=== PATIENT | male | born 1995 | race Caucasian/White ===

== ENCOUNTER 2022-06-13 21:40 | Emergency (ER) | payer BC, SELFPAY ==
[2022-06-13 21:45] VITALS: BP 128/74; PULSE 92; RESP 16; TEMP 36.8; O2SAT 97; BMI 18.7
--- NOTE | 2022-06-14 07:25 | ED.SKABFB ---
HPI - Skin/Abscess/Foreign Bdy General Chief complaint: Skin/Abscess/Foreign Body Stated complaint: Infection left index finger Time Seen by Provider: 06/13/22 22:26 History of Present Illness HPI narrative: 27-year-old young man accompanied by his mom with concern of potential infection his left index finger. Apparently was carrying some items/wood and struck the finger on a point/edge of would. Had callused over, seemed improving overall. Today though abruptly doubled in size; this was alarming. Is not actually having difficulty moving it. Sounds as if in the course he had placed some antibiotic ointment did not seem to be affecting anything. Otherwise no treatments attempted. Related Data Home Medications Medication Instructions Recorded Confirmed sertraline 100 mg tablet mg 06/13/22 Allergies Allergy/AdvReac Type Severity Reaction Status Date / Time amoxicillin Allergy Hives Verified 06/13/22 21:49 Review of Systems Status of ROS: Reports: 6 or more systems reviewed and unremarkable except as noted in History and below [facility] Social History Do you use any of these nicotine containing products: Vaping Products How often do you have a drink containing alcohol: 2-3 times a week AUDIT-C Alcohol total score: 3 Non-prescribed substance use: denies use Exam Narrative: Exam Narrative: Pleasant. Slim. Heavily bearded. Sleeping by the time I am able to evaluate him. Eventually alerts. Assists with exam. Breathing easily. No distress Skin is warm and dry. Examination of finger in question shows a 0.3cm dark callus over dorsal aspect of the D IP. There is mild swelling. Faint erythema. No significant calor. Intact flexion and extension to resistance. Mild discomfort to firm pressure. Const: Vital Signs, click to edit/add: Vital Signs - 24 hr 06/13/22 21:45 Temperature 98.3 F Pulse Rate [Left P ulse Oximeter] 92 Respiratory Rate 16 Blood Pressure [Ri ght Upper Arm] 128/74 Pulse Oximetry 97 Oxygen Delivery Me thod Room Air Documenting provider has reviewed patient's vital signs: yes Course Course Hospital Course: I discussed potential imaging though I think it is low yield. It appears they would like to defer that. I also offered unroofing for further evaluation. Another option was soaking at home and monitoring for worsening. Settled on soaking in warm soapy water and re-evaluation. By the time I returned Faith has pulled the callus off. There is a 1/2 mm hole in the skin. I am able to express the very small amount remaining purulence. Wound is generally clean with hypertrophied edges. Vital Signs Vital signs: Initial Vital Signs Temperature 98.3 F 06/13/22 21:45 Temperature Source Temporal Artery Scan 06/13/22 21:45 Pulse Rate 92 06/13/22 21:45 Respiratory Rate 16 06/13/22 21:45 Blood Pressure 128/74 06/13/22 21:45 Blood Pressure Mean 92 06/13/22 21:45 Blood Pressure Position Sitting 06/13/22 21:45 Pulse Oximetry 97 06/13/22 21:45 Oxygen Delivery Method 06/13/22 21:45 Vital Signs Temperature 98.3 F 06/13/22 21:45 Pulse Rate 92 06/13/22 21:45 Respiratory Rate 16 06/13/22 21:45 Blood Pressure 128/74 06/13/22 21:45 Pulse Oximetry 97 06/13/22 21:45 Oxygen Delivery Method 06/13/22 21:45 Temperature 98.3 F 06/13/22 21:45 Pulse Rate 92 06/13/22 21:45 Respiratory Rate 16 06/13/22 21:45 Blood Pressure 128/74 06/13/22 21:45 Pulse Oximetry 97 06/13/22 21:45 Oxygen Delivery Method 06/13/22 21:45 MDM - Skin/Abscess/Foreign Bdy MDM Narrative Medical decision making narrative: Options delineated in course. Did not appear to be significant infection. I do not think any wound culture will be necessary Discharge Plan Discharge Clinical Impression: Pustule Patient Disposition: Home w/ Parent or Adult Condition: Improved Additional Instructions: Place antibiotic ointment and Band-Aid daily over the next few days. Consider soaking daily as well during that time though I think it will probably be okay. Be seen for marked increase in pain, persistent swelling/redness/heat. Prescriptions: No Action sertraline 100 mg tablet Label Comments: Take 1 Tablet (100 mg) by mouth every morning. Follow Up/Referrals: Provider,Not a Local [Primary Care Provider] - Stand Alone Forms: [email or web address] Info Instructions
== END 2022-06-13 23:53 | disposition home or self-care (01) ==
PROVIDERS: Emergency Provider Family Medicine
DX: L08.9 Local infection of the skin and subcutaneous tissue, unspecified (principal)
CPT/HCPCS: 99283